=== PATIENT | female | born 1970 | race African-American/Black ===

== ENCOUNTER 2021-11-26 16:40 | Emergency (ER) | payer MEDICAID, OTHER ==
[~2021-11-26] VITALS: Ht 177.8 cm; Wt 82.0 kg
[2021-11-26] MEDS ORDERED: CYCLOBENZAPRINE 10MG TABLET PO ONE (17:00)
[2021-11-26] MEDS ORDERED: CYCL10TA21 MT (17:08)
[2021-11-27] MEDS ORDERED: HYDROXYZINE 25MG TABLET PO ONE (08:15)
[2021-11-27 10:00] VITALS: BP 133/84
== END 2021-11-27 11:40 | disposition home or self-care (01) ==
LOC: ER 16:40
DX: S00.83XA Contusion of other part of head, initial encounter (principal); S00.211A Abrasion of right eyelid and periocular area, initial encounter; S70.02XA Contusion of left hip, initial encounter; Y07.04 Female partner, perpetrator of maltreatment and neglect; Y04.2XXA Assault by strike against or bumped into by another person, initial encounter; Y93.89 Activity, other specified; Y92.018 Other place in single-family (private) house as the place of occurrence of the external cause
CPT/HCPCS: 99285

== ENCOUNTER 2023-10-24 00:57 | Emergency (ER) | payer MEDICAID ==
[~2023-10-24] VITALS: Ht 170.2 cm; Wt 72.5 kg
[~2023-10-24 00:57] MED LIST: CYCL10TA21 MT
[2023-10-24 01:00] VITALS: O2SAT 98
[2023-10-24] MEDS: ACETAMINOPHEN 325MG TABLET PO ONE (01:30)
[2023-10-24] MEDS ORDERED: BACL-141 MT (02:24)
[2023-10-24] MEDS ORDERED: IBUP-2030 MT (02:24)
[2023-10-24 02:40] VITALS: BP 142/86; PULSE 90; RESP 18; TEMP 36.50292; O2SAT 100
== END 2023-10-24 02:40 | disposition home or self-care (01) ==
LOC: ER 00:57
DX: Z76.0 Encounter for issue of repeat prescription (principal); I10 Essential (primary) hypertension; Z88.2 Allergy status to sulfonamides; Z88.0 Allergy status to penicillin
CPT/HCPCS: 99283